=== PATIENT | female | born 1970 | race Caucasian/White ===

== ENCOUNTER 2019-04-09 18:20 | Emergency (ER) | payer OTHER ==
[~2019-04-09] VITALS: Ht 157.5 cm; Wt 65.8 kg
[2019-04-09 18:42] VITALS: Ht 157.5 cm; Wt 65.8 kg
[2019-04-09 20:43] VITALS: BP 138/87
== END 2019-04-09 20:43 | disposition home or self-care (01) ==
LOC: ED 18:20
DX: G44.209 Tension-type headache, unspecified, not intractable (principal)
CPT/HCPCS: J0780; J1885